=== PATIENT | male | born 1980 | race African-American/Black ===

== ENCOUNTER 2019-10-18 02:25 | Observation (INO) | payer OTHER ==
[~2019-10-18] VITALS: Ht 182.9 cm; Wt 107.0 kg
[2019-10-18] VITALS (9 sets, daily range): BP systolic 114–143; BP diastolic 58–85
[2019-10-18 02:52] LABS: HEMATOCRIT 42.6 % (39.0-50.0); HEMOGLOBIN 13.4 g/dl (14.0-18.0); IMMATURE GRANULOCYTES 0.2 % (0.0-5.0); MEAN CORPUSCULAR HGB 26.1 pG CALC (26.0-32.0); MEAN CORPUSCULAR HGB CONC 31.5 g/dL CAL (32.0-36.0); NEUT# 5.44 thou/uL (1.82-7.42); RED BLOOD COUNT 5.13 mill/uL (4.70-6.10); RED CELL DISTRI WIDTH 15.4 % (11.5-15.5)
[2019-10-18 03:04] LABS: ALBUMIN 3.8 g/dL (3.2-5.0); ALKALINE PHOSPHATASE 50 u/l (38-126); ANION GAP 9 (6-22 (CALC)); BILIRUBIN, TOTAL 0.4 mg/dL (0.0-1.4); BUN 20 mg/dL (9-20); BUN/CREATININE RATIO 21 (12-20 (CALC)); CARBON DIOXIDE 27 mmol/l (22-30); CHLORIDE 105 mmol/l (95-108); ETHYL ALCOHOL 0 mg/dl (0-30); GFR > 60 ML/MIN (>=60 (CALC)); GFR FOR AFR.AMER. > 60 ML/MIN (>=60 (CALC)); MAGNESIUM 1.9 mg/dL (1.6-2.3); POTASSIUM 3.5 mmol/l (3.5-5.1); SGOT/AST 22 u/l (17-59); SODIUM 137 mmol/l (137-146); TOTAL PROTEIN 6.6 g/dL (6.3-8.2)
--- NOTE | 2019-10-18 03:08 | NUR ---
sPOKE TO Varinder AT POISON CONTROL. HE ADVISES SUPPORTIVE TREATMENT AND LABS TO INCLUDE A COAG PANEL.
[2019-10-18 03:11] LABS: URINE BILIRUBIN - DIPSTICK NEGATIVE (NEGATIVE); URINE BLOOD DIPSTICK NEGATIVE (NEGATIVE); URINE COLOR YELLOW; URINE GLUCOSE - DIPSTICK NEGATIVE (NEGATIVE); URINE KETONE NEGATIVE (NEGATIVE); URINE LEUK ESTERASE NEGATIVE (NEGATIVE); URINE NITRITE - DIPSTICK NEGATIVE (Negative); URINE PROTEIN - DIPSTICK NEGATIVE (NEG-TRACE); URINE SPECIFIC GRAVITY <=1.005; URINE UROBILINOGEN - DIPSTICK 0.2 E.U./dL (0.2)
[2019-10-18 03:12] LABS: ACT PARTIAL THROMBO TIME 27.2 SECONDS (20.0-32.5); PROTHROMBIN TIME 10.5 SECONDS (9.0-12.5)
--- NOTE | 2019-10-18 03:20 | NUR ---
THE PATIENT HAS A GARCIA CATHETER.
--- NOTE | 2019-10-18 04:01 | NUR ---
THE PATIENT WAS CLEANED UP, URINE SOAKED CLOTHING REMOVED. DOC OFFICERS AT THE BEDSIDE.
--- NOTE | 2019-10-18 04:27 | NUR ---
PT TO CT
--- NOTE | 2019-10-18 05:40 | NUR ---
REPORT GIVEN TO TYSON WILCOX IN ICU
--- NOTE | 2019-10-18 06:08 | NUR ---
39 yr old black male admitted to [id number] per stretcher from er accompanied with guards x2. transferred x3 to bed. bed weight obtained.
--- NOTE | 2019-10-18 07:30 | NUR ---
PT SLEEPING IN BED, BUT AROUSABLE. GAURDS x2 @BEDSIDE. HANDCUFF TO RIGHT ANKLE. GAURDS GIVEN MEAL TRAYS FROM [place]. LUNGS CTA, BREATHING EVEN/UNLABORED. ABD SOFT/NONTENDER, ACTIVE BS. EYES PERRLA @2. PARR. CAP REFILL -3, STRONG PULSES x2. GENERALIZED EDEMA TO BILATERAL FEET.
--- NOTE | 2019-10-18 10:05 | NUR ---
DR SAENZ @BEDSIDE.
--- NOTE | 2019-10-18 12:53 | NUR ---
D/C PENDING ORDERS. PT SLEEPING. MARIA R x2 @BEDSIDE. RIGHT ANKLE IN HANDCUFFS W/OUT REDNESS OR IRRITATION. BREATHING EVEN/UNLABORED. WILL CONTINUE TO MONITOR.
--- NOTE | 2019-10-18 14:05 | NUR ---
PT/MARIA R EDUCATED ON DC INSTRUCTIONS. MARIA R GIVEN TEST RESULTS, INSTEAD OF GIVING REPORT TO [facility] RN. HOME GARCIA REMOVED W/OUT INCIDENT. PT WAITING FOR ESCORT FROM [facility].
--- NOTE | 2019-10-18 15:05 | NUR ---
PT OUT THE DOOR WITH SECURITY & GAURDS x2 BY WC IN STABLE CONDITION. PT AWAKE & ALERT & ORIENTED x3.
--- NOTE | 2019-10-20 20:02 | NUR ---
PT note: patient is screened for PT intervention and no rehab needs are identified at this time
== END 2019-10-18 15:05 | DRG 948 ==
LOC: ED 02:25 → ED-I 04:50 → ED 05:24 → ICU 05:25
PROVIDERS: Emergency Medicine; ADMIT Internal Medicine; ATTEND Internal Medicine
PROC: 0T9B70Z Drainage of Bladder with Drainage Device, Via Natural or Artificial Opening (ICD-10-PCS; principal; 2019-10-18)
DX: R41.82 Altered mental status, unspecified (principal); Z20.828 Contact with and (suspected) exposure to other viral communicable diseases